=== PATIENT | female | born 1980 | race Caucasian/White ===

== ENCOUNTER → 2019-04-11 | Outpatient (CLI) | payer OTHER ==
[~2019-04-11] MED LIST: BUPR300T3 PO; CLON0.5T11 PO; FEXO180T81 PO; FLUO10CA13 PO; META-21 PO; SUMA100T4 PO; TOPI25TA7 PO; TRAM50TA PO
--- NOTE | 2019-04-12 02:14 | PAIN ---
DATE OF SERVICE: 04/11/2019 INITIAL CONSULTATION FOR PAIN CLINIC CHIEF COMPLAINT: Mid and low back pain and left lower extremity pain. HISTORY OF PRESENT ILLNESS: The patient is a 38-year-old female who presents with history of pain in the mid back, low back and left leg for many years, started about 2016, gradually increasing, not a result of any specific injury or action that she is aware of. She has been active for many years with a lot of heavy duty lifting and supporting heavy weight while hiking, climbing, jumping, etc. The patient reports that the pain is getting worse now over the past year or so, increasing left greater than right low back and in the mid back as well as in the left leg with radiation occasionally in the posterior, lateral and anterior thigh on the left side. The patient reports the pain in the back is constant, sharp, throbbing with some numbness in the leg, intermittent in intensity, always present, however, but has an aching quality in the mid and low back itself. The patient reports it wakes her from sleep about 1-3 times at night, can affect her bowel or bladder control, but no loss of continence and affects her ability to walk at times when she is on further distances greater than 30 minutes of walking or standing. The patient reports she has had trigger point injections, chiropractic treatment, exercise going on currently, she does daily and stays very active. All of these do decrease the pain to a mild extent only. The patient tried tramadol as well as metaxalone, neither of which has decreased the pain significantly. The patient rates her disability rating from 0 to 10, 10 being the worst, as 1 in all categories, family and home responsibility, recreation, social activity, occupation, sexual behavior, self-care and 6 with life support activities, especially sleeping. The patient did have MRI scan of the thoracic spine and lumbar spine; thoracic spine showing degenerative disk disease, worse at the T9-T10 level and lumbar scan still pending, review is not available at time of this dictation. The patient reports some easy fatigability in the left lower extremity with walking, but none in the right side and no loss of motor function completely. PAST MEDICAL HISTORY: Significant for current GI conditions with frequent diarrhea. Also, history of arthritis, stage 3 kidney disease with medullary sponge kidney disease. PREVIOUS SURGERY: Include hysterectomy in 2017, hip arthroscopy in 2011 and breast augmentation in 2012. CURRENT MEDICATIONS: Include Wellbutrin, Prozac, tramadol, Skelaxin, topiramate, sumatriptan, clonazepam and Kath. ALLERGIES: The patient has no known drug allergies. FAMILY HISTORY: Significant for no major medical problems or conditions that she knows of. SOCIAL HISTORY: The patient drinks 1-2 alcoholic drinks a week on average. Does not smoke. Does not use any illegal, illicit or recreational drugs. 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 REVIEW OF SYSTEMS: The patient's review of systems is positive for those items mentioned in history of present illness. All systems reviewed and otherwise negative, is complete and well documented in the patient's chart. PHYSICAL EXAMINATION: VITAL SIGNS: Blood pressure is 113/43, pulse 66, respirations 18, temperature is 98.3 degrees Fahrenheit, height is 5 feet 3 inches, weight is 124 pounds. GENERAL: The patient is awake, alert, oriented, appropriate, very pleasant demeanor. HEENT: Head is normocephalic, atraumatic. Extraocular movements are intact, symmetrical. Oral cavity: Mucous membranes moist and pink. Dentition is intact. NECK: Shows anterior throat supple without palpable lymphadenopathy noted. Swallow reflex is symmetrical. CHEST: Shows normal on inspection. Breath sounds clear to auscultation bilaterally. HEART: Shows S1, S2 clear. No murmurs auscultated. ABDOMEN: Soft, nontender, nondistended. No palpable organomegaly is noted. No rebound or guarding demonstrated. BACK: Shows spine grossly in the midline. Normal-appearing thoracic kyphosis, cervical lordotic curvature and lumbar lordotic curvature. Inspection of the thoracic paraspinous musculature shows symmetrical on inspection, with palpation shows some significant tenderness bilaterally in the middle and lower distribution of the thoracic paraspinous muscles. This is true into the superior, medial and inferior aspect of the lumbar paraspinous muscles, which are firm as are the thoracic paraspinous muscles diffusely tender to moderate extent in the upper lumbar and thoracic. Lower lumbar also moderately tender as well and firm musculature, but without specific trigger points or radiation. The patient has no specific tenderness over the spinous processes themselves. No tenderness over the sacrum or sacroiliac regions and no radiation of pain. The patient does show good rotational motion of both thoracic and lumbar spine, both laterally as well as extension and flexion without significant difficulty. EXTREMITIES: The patient's lower extremities show deep tendon reflexes 2+ in the patellar and tendo calcaneus tendons. Motor exam is strong with 5/5 dorsiflexion, extension, quadriceps and hamstring flexion and symmetrical. Upper extremities show deep tendon reflexes 2+ biceps and triceps tendons. Motor exam is strong with show card letterer strength rated at 5/5 as is bicep and tricep flexion. Shoulder shrug is strong and intact without loss of strength and resistance as is abduction of shoulder to 90 degrees without loss of strength on resistance. Peripheral pulses are 2+ radial, 1+ posterior tibial and equal bilaterally. No peripheral edema is noted. Upper extremities are warm and dry to touch as are lower extremities equal in temperature and appearance. Gaenslen's and Thomas's maneuvers are negative bilaterally. The lower extremities has straight leg raise negative bilaterally. The patient is able to stand, stand on her toes without difficulty or loss of balance, walks with a normal-appearing gait without any assistive devices to ambulate. SKIN: Shows warm and dry, good turgor. No edema. No sores, rashes or bruising throughout. IMPRESSION: This is a 38-year-old female with: 1. A long history of low back, mid back pain with some radicular pain in the left lower extremity. 2. MRI scan thoracic spine as noted with MRI scan of lumbar spine results pending at time of this dictation. 3. Arthritis. 4. Stage 3 kidney disease with medullary sponge kidney condition. PLAN: Options were discussed with the patient including conservative medical management, continued physical therapy, interventional techniques. She would like to pursue interventional techniques. We discussed a thoracic epidural steroid injection using description as well as anatomical models to describe the procedure. The patient would like to proceed with this. We will wait for preauthorization with her insurance provider. Once this is obtained, we will have the patient return for thoracic epidural steroid injection at that time. The patient will continue with stretching and strengthening exercises in the meantime and wait for preauthorization. ANGÉLICA OSBORNE MD DR: ARIANA/jj JOB#: [id number] / [id number]
== END | disposition home or self-care (01) ==
LOC: PNCL 08:01
PROVIDERS: ATTEND Anesthesiology
DX: M51.34 Other intervertebral disc degeneration, thoracic region (principal); N18.3 Chronic kidney disease, stage 3 (moderate); M19.90 Unspecified osteoarthritis, unspecified site; Z79.891 Long term (current) use of opiate analgesic; Z79.899 Other long term (current) drug therapy; Z72.89 Other problems related to lifestyle; Z90.710 Acquired absence of both cervix and uterus
CPT/HCPCS: G0463

== ENCOUNTER → 2019-08-12 | Outpatient (CLI) | payer OTHER ==
[~2019-08-12] MED LIST changes: +CLON-77 PO; -CLON0.5T11 PO; +DICY10CA3 PO
--- NOTE | 2019-08-12 11:23 | PAIN ---
DATE OF SERVICE: 08/12/2019 PROGRESS NOTE FOR PAIN CLINIC DIAGNOSES: 1. Thoracic radiculopathy with thoracic degenerative disk disease. 2. Lumbar radiculopathy with lumbar degenerative disk disease. HISTORY OF PRESENT ILLNESS: The patient is a 39-year-old female who returns for followup status post thoracic epidural steroid injection x 1 on 04/23/2019. The patient had about 70% improvement for the first few weeks, the pain has returned now in the base. Her chief complaint, however, is low back and base of the spine pain, left greater than right with radiating pain in the posterior gluteus, posterolateral thigh, lateral anterior thigh, medial thigh and medial knee on the left side. The patient reports it is aching, sharp, dull, tight, shooting, occasionally into the legs, worse on the left side, radiating and constant, worse with standing and also worse with prolonged sitting or riding in a car or driving. The patient reports it is 8-9 on a scale of 10 at its worst over the past week, 7 on average, 5 at its least and is a 5 today. The patient reports no new motor or sensory deficits, also complains of some numbness and tingling in the upper extremities during the day, which is becoming more noticeable, but is symmetrical as well. The patient reports it awakens her from sleep, in the low back for about every 6-7 hours. The patient reports no new motor or sensory deficits, no new bowel or bladder incontinence or other complaints. PHYSICAL EXAMINATION: VITAL SIGNS: The patient's blood pressure 143/78, pulse 68, respirations 16, temperature 98.0 degrees Fahrenheit, height is 5 feet, weight is 134 pounds. GENERAL: The patient is awake, alert, oriented, appropriate, very pleasant demeanor. HEENT: Shows normocephalic, atraumatic. Extraocular movements are intact and symmetrical. Oral cavity: Mucous membranes moist and pink. Dentition is intact. NECK: Shows anterior throat supple without palpable lymphadenopathy noted. Swallow reflex symmetrical. CHEST: Shows normal on inspection. Breath sounds clear to auscultation bilaterally. HEART: Shows S1, S2 clear. No murmurs auscultated. ABDOMEN: Soft, nontender, nondistended. No palpable organomegaly is noted. No rebound or guarding demonstrated. BACK: Shows spine grossly in the midline. Normal appearing thoracic kyphosis, cervical lordotic curvature and lumbar lordotic curvature. Lumbar paraspinous muscle shows symmetrical on inspection, with palpation shows some moderate tenderness diffusely bilaterally, but only diffusely without radiation. EXTREMITIES: The patient's lower extremities show deep tendon reflexes 2+ in the patellar and 1+ tendo calcaneus tendons. Motor exam is strong with 5/5 dorsiflexion, extension, quadriceps and hamstring flexion and symmetrical. Peripheral pulses are 1+ posterior tibia. No peripheral edema is noted bilaterally. Options were discussed with the patient. The patient's old chart was reviewed as her current medication regimen updated. Current review of systems updated today as well. We will preauthorize the patient for lumbar epidural steroid injection as he has L4-L5 disk degeneration and small central disk protrusion at that level and also L5-S1 with radicular pain, left greater than right. The patient will continue with stretching and strength exercises, walking as tolerated and return in approximately 1 week with plan on lumbar epidural steroid injection at that time. ANGÉLICA OSBORNE MD DR: ARIANA/jj JOB#: [id number] / [id number]
== END | disposition home or self-care (01) ==
LOC: PNCL 09:44
PROVIDERS: ATTEND Anesthesiology
DX: M51.14 Intervertebral disc disorders with radiculopathy, thoracic region (principal); M51.16 Intervertebral disc disorders with radiculopathy, lumbar region; M40.294 Other kyphosis, thoracic region; M40.46 Postural lordosis, lumbar region
CPT/HCPCS: G0463

== ENCOUNTER → 2019-08-19 | Outpatient (CLI) | payer OTHER ==
[~2019-08-19] MED LIST changes: +IOHEXOL 180 MG/ML 10 ML VIAL. ONE; +methylPREDNISolone ACETATE 40 MG/ML VIAL. ONE; +methylPREDNISolone ACETATE 80 MG/ML VIAL. ONE
--- NOTE | 2019-08-19 22:07 | PAIN ---
DATE OF SERVICE: 08/19/2019 PROGRESS NOTE FOR PAIN CLINIC DIAGNOSES: 1. Thoracic radiculopathy with thoracic degenerative disc disease. 2. Lumbar radiculopathy with lumbar degenerative disc disease. HISTORY OF PRESENT ILLNESS: The patient is a 39-year-old female who returns for followup status post thoracic epidural steroid injection x 1 on 04/23/2019. The patient did well, about 70% improvement after that, now with significant pain in the low back. We waited for preauthorization for lumbar epidural steroid injection. She has obtained that now and would like to proceed, still pain across the low back in the bilateral posterior gluteus and hips, slightly more on the right than the left into the lateral thigh and anterior thigh, but always in the back. The patient reports it is radiating, becoming constant aching, tight describes as an 8 on a scale of 10 at its worst over the past week, 7 on average, 4 at its least, and is 7 today. The patient reports no new motor or sensory deficits, no new bowel or bladder incontinence. It is awakening her from sleep about every 8 hours or so at night. PHYSICAL EXAMINATION: VITAL SIGNS: The patient's blood pressure is 126/75, pulse 63, respirations 18, temperature 98.6 degrees Fahrenheit, height is 5 feet 2 inches, weighs 135 pounds. GENERAL: The patient is awake, alert, oriented, appropriate, very pleasant demeanor. HEENT: Shows normocephalic, atraumatic. Extraocular movements are intact and symmetrical. Oral cavity, mucous membranes moist and pink. Dentition is intact. NECK: Shows anterior throat supple without palpable lymphadenopathy noted. Swallow reflex symmetrical. CHEST: Shows normal on inspection. Breath sounds are clear to auscultation bilaterally. HEART: Shows S1 and S2 clear. No murmurs auscultated. ABDOMEN: Soft, nontender, nondistended. No palpable organomegaly is noted. BACK: Shows spine grossly in the midline. Normal-appearing thoracic kyphosis and lumbar lordotic curvature. Lumbar paraspinous muscle shows symmetrical on inspection, with palpation shows some moderate tenderness, but only diffusely without significant radiation. The patient has good rotational motion of lumbar spine, both laterally as well as extension and flexion without difficulty. EXTREMITIES: The patient's lower extremities show deep tendon reflexes 2+ in the patellar, 1+ tendo-calcaneus tendons. Motor exam is approximately 5 on a scale of 5 with dorsiflexion, extension, quadriceps and hamstring flexion and symmetrical. Peripheral pulses are 1+ in the posterior tibia. No peripheral edema is noted. Options were discussed with the patient. The patient's old chart was reviewed as her current medication regimen updated. Current review of systems updated today as well and we will proceed with a lumbar epidural steroid injection today with fluoroscopic guidance. Risks were again discussed including, but not limited to bleeding, infection, possibility of epidural hematoma, subsequent neurological compromise, dural puncture, headaches, spinal cord and/or nerve damage, side effects of steroid medication and poor results regarding pain control. The patient understands and wished to proceed. The patient will return to the clinic in approximately 2 weeks for followup. She was counseled on return appointment, activity level and side effects to be aware of. DIAGNOSIS: Lumbar radiculopathy with lumbar degenerative disc disease. PROCEDURE: Lumbar epidural steroid injection, translaminar approach at L4-L5 level using C-arm fluoroscopic guidance under sterile prep and drape using local anesthetic. MEDICATION INJECTED: A total of 120 mg Depo-Medrol plus 10 mL of preservative-free normal saline and 2 mL of contrast. CONDITION AT DISCHARGE: Stable. The patient tolerated the procedure well, had no complications. ANGÉLICA OSBORNE MD DR: ARIANA/jj JOB#: [id number] / [id number]
== END ==
LOC: PNCL 14:05
PROVIDERS: ATTEND Anesthesiology
DX: M51.16 Intervertebral disc disorders with radiculopathy, lumbar region (principal); M51.14 Intervertebral disc disorders with radiculopathy, thoracic region
CPT/HCPCS: 62323; J1040; Q9965; J1030

== ENCOUNTER → 2020-01-08 | Outpatient (CLI) | payer OTHER ==
--- NOTE | 2020-01-08 12:44 | PAIN ---
DATE OF SERVICE: 01/08/2020 PROGRESS NOTE FOR PAIN CLINIC DIAGNOSES: 1. Thoracic radiculopathy with thoracic degenerative disk disease. 2. Lumbar radiculopathy with lumbar degenerative disk disease. HISTORY OF PRESENT ILLNESS: The patient is a 39-year-old female who returns for followup status post post-thoracic epidural steroid injection x 1 and lumbar epidural steroid injection x 1. The patient reports about 70% improvement of her thoracic injection and only about 40% after the lumbar injection. The patient was most recently seen on 08/19/2019. The patient did very well, but the pain is returning now in the low back, especially more on the right than the left, but present bilaterally, also in the mid lower to mid back as well. The patient reports it is aching, sharp, dull, tight, shooting at times, radiating, constant in the lower extremities, mostly in the posterior gluteus, lateral thigh, lateral anterior thighs bilaterally. The patient reports that it is 9 on a scale of 10 at its worst over the past week, 6 on average and 4 at its least and is a 6 today. The patient reports no new motor or sensory deficits, no new bowel or bladder incontinence. The patient has been worked up for "flank pain" with CT scans, renal evaluations with all negative results by her report at this time. PHYSICAL EXAMINATION: VITAL SIGNS: The patient's blood pressure 114/75, pulse 87, respirations 16, temperature 98.2 degrees Fahrenheit, height is 5 feet 2 inches, weight is 141 pounds. GENERAL: The patient is awake, alert, oriented, appropriate, very pleasant demeanor. HEENT: Shows normocephalic, atraumatic. Extraocular movements are intact and symmetrical. Oral cavity: Mucous membranes moist and pink. Dentition is intact. NECK: Shows anterior throat supple without palpable lymphadenopathy noted. Swallow reflex symmetrical. CHEST: Shows normal on inspection. Breath sounds clear to auscultation bilaterally. HEART: Shows S1, S2 clear. No murmurs auscultated. ABDOMEN: Soft, nontender, nondistended. No palpable organomegaly is noted. No rebound or guarding demonstrated. BACK: Shows spine grossly in the midline. Normal appearing thoracic kyphosis and lumbar lordotic curvature. Thoracic paraspinous muscle shows moderate tenderness in the mid and lower distribution, thoracic paraspinous muscles show symmetrical without evidence of atrophy or hypertrophy. The patient has good rotational motion of the lumbar and thoracic spine. Lumbar paraspinous muscle shows symmetrical on inspection, with palpation shows some moderate tenderness diffusely throughout the middle and lower distribution as well, but without trigger points, without radiation. The patient has good rotational motion, extension and flexion of the lumbar spine as well without significant increase in pain, no tenderness over the sacrum or sacroiliac regions bilaterally. EXTREMITIES: Lower extremities show deep tendon reflexes 2+ in the patellar, 1+ tendo-calcaneus tendons. Motor exam is strong with 5/5 dorsiflexion, extension, quadriceps and hamstring flexion symmetrical. Peripheral pulses are 1+ posterior tibia. No peripheral edema bilaterally. Options were discussed with the patient. The patient's old chart was reviewed as her current medication regimen updated. Current review of systems updated today as well. We will proceed with a first in this series of lumbar epidural steroid injection today with fluoroscopic guidance. Risks were again discussed including, but not limited to bleeding, infection, possibility of epidural hematoma, subsequent neurological compromise, dural puncture, headaches, spinal cord and/or nerve damage, side effects of steroid medication and poor results regarding pain control. The patient understands and wished to proceed. The patient will return to clinic in approximately 2 weeks for followup. She was counseled on return appointment, activity level and side effects to be aware of. DIAGNOSES: Lumbar radiculopathy with lumbar degenerative disk disease. PROCEDURE: Lumbar epidural steroid injection, translaminar approach at L4-L5 level using C-arm fluoroscopic guidance under sterile prep and drape using local anesthetic. MEDICATION INJECTED: A total of 120 mg Depo-Medrol plus 10 mL of preservative-free normal saline and 2 mL of contrast. CONDITION AT DISCHARGE: Stable. The patient tolerated the procedure well, had no complications. ANGÉLICA OSBORNE MD DR: ARIANA/jj JOB#: [id number] / [id number]
== END ==
LOC: PNCL 09:04
PROVIDERS: ATTEND Anesthesiology
DX: M51.16 Intervertebral disc disorders with radiculopathy, lumbar region (principal); M51.14 Intervertebral disc disorders with radiculopathy, thoracic region
CPT/HCPCS: 62323; J1030; J1040; Q9965

== ENCOUNTER → 2020-01-29 | Outpatient (CLI) | payer OTHER ==
[~2020-01-29] MED LIST changes: -IOHEXOL 180 MG/ML 10 ML VIAL. ONE; -methylPREDNISolone ACETATE 40 MG/ML VIAL. ONE; -methylPREDNISolone ACETATE 80 MG/ML VIAL. ONE
--- NOTE | 2020-01-29 14:35 | PAIN ---
DATE OF SERVICE: 01/29/2020 PROGRESS NOTE FOR PAIN CLINIC DIAGNOSES: Thoracic radiculopathy with thoracic degenerative disk disease. CHIEF COMPLAINT: Lumbar radiculopathy with lumbar degenerative disk disease. HISTORY OF PRESENT ILLNESS: The patient is a 39-year-old female who returns for followup status post lumbar epidural steroid injections x2. The patient reports that she is getting good relief with her low back pain about 80% or so, but her main complaint is flank pain and some upper mid to low back pain. The patient reports she has been working out conditioning her low back as well as her core but has some significant pain in the flank, which is taken to the Emergency Department at least 3 times since her last visit, which was a month ago. The patient has been taking hydrocodone 10 mg and is broken in half and taking half a tablet, using very sparingly, usually just once in the evening or at night to help her relax and sleep and reports this is doing fairly well and is the only thing that really control the pain significantly in the flanks, although her low back and hips are doing better. The flank is her main complaint. The patient reports her pain is 7 on a scale of 10 at its worst over the past week, 6 on average and 4 at its least and is a 6 today. The patient reports it is sharp, aching, shooting at times, radiating, severe at times in the flank bilaterally as well. The patient does have some stage 2 to 3 kidney disease, but this has been fairly well controlled by her report with her hop grower with the multi spongiform disease in the kidneys. The patient reports no new motor or sensory deficits, no new changes. PHYSICAL EXAMINATION: VITAL SIGNS: The patient's blood pressure 108/75, pulse 88, respirations 16, temperature 98.0 degrees Fahrenheit, height is 5 feet, weight is 137 pounds. GENERAL: The patient is awake, alert, oriented, appropriate, very pleasant demeanor. HEENT: Shows normocephalic, atraumatic. Extraocular movements are intact and symmetrical. Oral cavity: Mucous membranes moist and pink. Dentition is intact. NECK: Shows anterior throat supple without palpable lymphadenopathy noted. Swallow reflex symmetrical. CHEST: Shows normal on inspection. Breath sounds are clear to auscultation bilaterally. HEART: Shows S1, S2 clear. No murmurs auscultated. ABDOMEN: Soft, nontender, nondistended. No palpable organomegaly is noted. No rebound or guarding demonstrated. BACK: Shows spine grossly in the midline, normal appearing thoracic kyphosis and lumbar lordotic curvature. Thoracic paraspinous muscle shows symmetrical on inspection, on palpation shows some [id number] tenderness in the middle and lower distribution of paraspinous musculature, very firm, tender with palpation diffusely but without specific trigger points, atrophy or hypertrophy or asymmetry. Lumbar paraspinous musculature shows some mild tenderness as well throughout the upper, middle and lower distribution of paraspinous muscles with palpations with low radiation also. EXTREMITIES: Lower extremities show deep tendon reflexes 2+ in the patellar, 1+ tendo-calcaneus tendons. Motor exam is strong with 5/5 dorsiflexion, extension, quadriceps and hamstring flexion. Peripheral pulses are 1+ posterior tibia. No peripheral edema bilaterally. Options were discussed with the patient. The patient's old chart was reviewed as her current medication regimen updated. Current review of systems updated today as well. We will preauthorize the patient for thoracic epidural steroid injections. She is very well with these in the past on 04/23/2019 with about 70% improvement with the flank pain at that time. We discussed this on her last visit as well for potential treatment and we will have this preapproved with her insurance provider. Once this is approved, we will have her return for a thoracic epidural steroid injection at that time. Regarding her hydrocodone, I discussed with the patient that we were unable to prescribe narcotics at this clinic as it is interventional only clinic per Department policy without a cancer diagnosis and we will forward a note to patient's primary care physician with a recommendation that hydrocodone will be continued at least temporarily where she is taking half a tablet daily so equivalent of 5 mg 30 per month would probably be sufficient. I feel it is reasonable and acceptable for her to be on this currently at this time. ANGÉLICA OSBORNE MD DR: ARIANA/jj JOB#: [id number] / [id number] elia Guzman
== END ==
LOC: PNCL 08:39
PROVIDERS: ATTEND Anesthesiology
DX: M51.15 Intervertebral disc disorders with radiculopathy, thoracolumbar region (principal)
CPT/HCPCS: G0463

== ENCOUNTER → 2020-05-06 | Outpatient (CLI) | payer OTHER ==
[~2020-05-06] MED LIST changes: +HYDR-2761 PO; +IOHEXOL 180 MG/ML 10 ML VIAL. ONE; +methylPREDNISolone ACETATE 40 MG/ML VIAL. ONE; +methylPREDNISolone ACETATE 80 MG/ML VIAL. ONE
--- NOTE | 2020-05-06 11:25 | PAIN ---
DATE OF SERVICE: 05/06/2020 PROGRESS NOTE FOR PAIN CLINIC DIAGNOSES: 1. Thoracic radiculopathy with thoracic degenerative disk disease. 2. Lumbar radiculopathy with lumbar degenerative disk disease. HISTORY OF PRESENT ILLNESS: The patient is a 39-year-old female who returns for followup status post both thoracic epidural steroid injection and lumbar epidural steroid injection, most recently 01/08/2020, patient did well with a decrease in pain after the last injection by about 50%. The patient reports the pain is returning now in the mid back and upper back as well as the low back, but the low back is definitely the most painful. The patient reports it has been getting worse over the past few months, about one month that is described as radiating, constant in the low back, bilateral lower extremities, posterior gluteus, posterolateral thigh, lateral anterior thighs, medial thighs, especially on the right, but present bilaterally. The patient reports it is aching, dull and tight in the back, shooting and radiating in the legs. The patient reports it is an 8 on a scale of 10 at its worst over the past week, 6 on average, 3 at its least and is a 6 today. The patient reports no new motor or sensory deficits, no new bowel or bladder incontinence or other complaints. PHYSICAL EXAMINATION: VITAL SIGNS: The patient's blood pressure 137/72, pulse 76, respirations 16, temperature is 98.0 degrees Fahrenheit, weight is 137 pounds. GENERAL: The patient is awake, alert, oriented, appropriate, very pleasant demeanor. HEENT: Exam shows normocephalic, atraumatic. Extraocular movements are intact and symmetrical. Oral cavity: Mucous membranes moist and pink. Dentition is intact. NECK: Shows anterior throat supple without palpable lymphadenopathy noted. Swallow reflex symmetrical. CHEST: Shows normal on inspection. Breath sounds are clear to auscultation bilaterally. HEART: Shows S1, S2 clear. No murmurs auscultated. ABDOMEN: Soft, nontender, nondistended. BACK: Shows spine grossly in the midline. Normal appearing thoracic kyphosis and lumbar lordotic curvature. Thoracic paraspinous muscle shows some [id number] tenderness in the mid to low distribution of paraspinous muscles, but only diffusely without radiation. Lumbar paraspinous musculature shows symmetrical as well with moderate tenderness throughout the upper, middle and lower distribution of paraspinous muscles, which are firm and tight, but without specific trigger points, without radiation. The patient does show good rotational motion of lumbar spine, both laterally as well as extension and flexion without significant increase in pain. EXTREMITIES: Lower extremities show deep tendon reflexes 2+ in the patellar, 1+ tendo-calcaneus tendons. Motor exam is strong with 5/5 dorsiflexion, extension, quadriceps and hamstring flexion symmetrical. Peripheral pulses are 1+. No peripheral edema bilaterally. Options were discussed with the patient. The patient's old chart was reviewed as her current medication regimen updated. Current review of systems updated today as well and we will proceed with a third in the series of lumbar epidural steroid injection today with fluoroscopic guidance. Risks were again discussed including, but not limited to bleeding, infection, possibility of epidural hematoma, subsequent neurological compromise, dural puncture, headaches, spinal cord and/or nerve damage, side effects of steroid medication and poor results regarding pain control. The patient understands and wished to proceed. The patient will return to clinic in approximately 2 weeks for followup. She was counseled on return appointment, activity level and side effects to be aware of. DIAGNOSIS: Lumbar radiculopathy with lumbar degenerative disk disease. PROCEDURE: Lumbar epidural steroid injection, translaminar approach at L4-L5 level using C-arm fluoroscopic guidance under sterile prep and drape using local anesthetic. MEDICATIONS INJECTED: A total of 120 mg of Depo-Medrol plus 10 mL preservative-free normal saline and 2 mL of contrast. CONDITION AT DISCHARGE: Stable. The patient tolerated the procedure well, had no complications. ANGÉLICA OSBORNE MD DR: ARIANA/jj JOB#: [id number] / [id number]
== END ==
LOC: PNCL 08:47
PROVIDERS: ATTEND Anesthesiology
DX: M51.16 Intervertebral disc disorders with radiculopathy, lumbar region (principal)
CPT/HCPCS: 62323; J1030; J1040; Q9965